=== PATIENT | female | born 1990 | race Caucasian/White ===

== ENCOUNTER 2016-04-10 07:07 | Emergency (ER) | payer OTHER ==
--- NOTE | 2016-04-10 07:19 | ED Physician Documentation ---
General Adult - HISTORIAN Historian: patient - HPI Chief Complaint: General Adult Further Comments: yes (25 year old female patient presents requesting refill on her klonopin. States insurance will not pay for her medication yet and she has been out since Sunday. Complains of shaking and insomnia.) - ROS CONST: no problems EYES/ENT: none CVS/RESP: none GI/: none MS/SKIN/LYMPH: none NEURO/PSYCH: denies: headache - PAST HX Past History: other (Depression, anxiety) Allergies/Adverse Reactions: Allergies Allergy/AdvReac Type Severity Reaction Status Date / Time erythromycin base Allergy Verified 12/21/15 15:30 Home Medications: Ambulatory Orders Medication Instructions Recorded Clonazepam [Klonopin] 0.5 mg PO 12/21/15 Escitalopram Oxalate [Lexapro] 10 mg PO QD 12/21/15 Penicillin V Potassium [Pen V K] 500 mg PO Q8H #30 tablet 12/21/15 - SOCIAL HX Smoking History: cigarettes - FAMILY HX Family History: No - VITAL SIGNS Vital Signs: Vital Signs Temp Pulse Resp BP Pulse Ox 118/59 12/21/15 15:56 - REVIEWED ASSESSMENTS Nursing Assessment Reviewed: Yes Vitals Reviewed: Yes Progress - Progress Progress: Explained patient would need to contact her PCP for klonopin refills. Patient is currently taking 1 mg TID. Explained she would have to wait on insurance to pay for refill. Explained insurances will pay per the medication directions. Patient reports she has been taking an extra klonopin at night to sleep so she is out. Again, explained patient would need to get refills and have klonopin managed by PCP. Explained this provider would not prescribe additional klonopin, explained patient was taking maximum dose for her diagnosis. General Adult Physical Exam - PHYSICAL EXAM GENERAL APPEARANCE: [id number] N EENT: eye inspection normal, BRAYDEN RESPIRATORY: no resp distress, chest non-tender, breath sounds normal CVS: reg rate & rhythm, heart sounds normal, equal pulses, no murmur, no gallop , PMI nml, no JVD, no friction rub, 24 SKIN: normal color, warm/dry, NR, INT, PAL, DR EXTREMITIES: non-tender, normal range of motion, no evidence of injury, no edema , J, [employer] NEURO: oriented X3, CN's nml as tested, motor nml, sensation nml, mood/affect nml Discharge Clincal Impression: Medication taken at higher dose than recommended Referrals: Primary Doctor,No [Primary Care Provider] - 2 Days Home Medications: Ambulatory Orders Clonazepam [Klonopin] 0.5 mg PO 12/21/15 Escitalopram Oxalate [Lexapro] 10 mg PO QD 12/21/15 Penicillin V Potassium [Pen V K] 500 mg PO Q8H #30 tablet 12/21/15 Condition: Stable Disposition: 01 HOME, SELF-CARE Decision to Admit: NO Decision Time: 07:19
[2016-04-10 07:23] VITALS: BP 115/81
== END 2016-04-10 07:25 | disposition home or self-care (01) ==
LOC: ED 07:07
DX: T42.4X1A Poisoning by benzodiazepines, accidental (unintentional), initial encounter (principal)
CPT/HCPCS: 99282; 99283

== ENCOUNTER 2016-09-04 19:08 | Emergency (ER) | payer MEDICAID, OTHER ==
[2016-09-04 19:24] VITALS: BP 109/62
--- NOTE | 2016-09-04 21:50 | ED Physician Documentation ---
Eye Problem - HISTORIAN Historian: patient - HPI Stated Complaint: POSS PINK EYE L Chief Complaint: Eye Problems Onset: hours Associated symptoms: pain, itching Location: left eye Severity: moderate Apparent Injury: no Further Comments: yes (26 year old female patient presents with complaints of left eye redness and drainage since this morning.) - ROS CONST: no problems MS/SKIN/LYMPH: denies: weakness, numbness, neck pain, back pain, ankle swelling , leg swelling, rash, other CVS/RESP: none EYES/ENT: none NEURO: denies: headache - PAST HX Past History: other (bipolar, depression) Allergies/Adverse Reactions: Allergies Allergy/AdvReac Type Severity Reaction Status Date / Time erythromycin base Allergy Verified 09/04/16 19:24 Home Medications: Ambulatory Orders Medication Instructions Recorded Clonazepam [Klonopin] 0.5 mg PO TID 12/21/15 Escitalopram Oxalate [Lexapro] 10 mg PO QD 12/21/15 Estradiol Cypionate 5 mg IM Q3M 09/04/16 [Depo-Estradiol] Theo/Polymyx B Sulf/Dexameth 2 drop OP QID #1 bottle 09/04/16 [Maxitrol Eye Drops] Paliperidone [Paliperidone ER] 6 mg PO D 09/04/16 Quetiapine Fumarate [Seroquel] 50 mg PO HS 09/04/16 - SOCIAL HX Smoking History: cigarettes - FAMILY HX Family History: denies: none - VITAL SIGNS Vital Signs: Vital Signs Temp Pulse Resp BP Pulse Ox 98.5 F 98 H 20 109/62 98 09/04/16 19:45 09/04/16 19:45 09/04/16 19:45 09/04/16 19:45 09/04/16 19:45 - REVIEWED ASSESSMENTS Nursing Assessment Reviewed: Yes Vitals Reviewed: Yes Eye Problem Physical Exam - Physical Exam General Appearance: mild distress Eyelids: erythema (L) Conjunctiva and Sclera: injected (L), exudate (L) Pupils: equal Skin: nml color, warm Respiratory: no resp distress CVS: reg rate & rhythm Neuro/Psych: oriented x3, neuro intact, mood/affect nml, CN's nml as tested Discharge Clincal Impression: Conjunctivitis Qualifiers: Conjunctivitis type: acute Acute conjunctivitis type: bacterial Laterality: left Qualified Code(s): H10.32 - Unspecified acute conjunctivitis, left eye Prescriptions: Theo/Polymyx B Sulf/Dexameth [Maxitrol Eye Drops] 2 drop OP QID #1 bottle Referrals: Mayelin Coyne MD [Primary Care Provider] - 2 Days Home Medications: Ambulatory Orders Clonazepam [Klonopin] 0.5 mg PO TID 12/21/15 Escitalopram Oxalate [Lexapro] 10 mg PO QD 12/21/15 Estradiol Cypionate [Depo-Estradiol] 5 mg IM Q3M 09/04/16 Theo/Polymyx B Sulf/Dexameth [Maxitrol Eye Drops] 2 drop OP QID #1 bottle Paliperidone [Paliperidone ER] 6 mg PO D 09/04/16 Quetiapine Fumarate [Seroquel] 50 mg PO HS 09/04/16 Condition: Good Disposition: 01 HOME, SELF-CARE Decision to Admit: NO Decision Time: 19:40
== END 2016-09-04 19:45 | disposition home or self-care (01) ==
LOC: ED 19:08
DX: H10.32 Unspecified acute conjunctivitis, left eye (principal)
CPT/HCPCS: 99283

== ENCOUNTER 2016-11-28 17:11 | Emergency (ER) | payer MEDICAID, OTHER ==
--- NOTE | 2016-11-28 17:29 | ED Physician Documentation ---
Female Urogenital Problems - HISTORIAN Historian: patient - HPI Stated Complaint: exposure to STI Chief Complaint: Female Urogenital Problems Onset: days ago (4) Time of Arrival to the ED: 17:00 Context: vaginal discharge and exposure Severity: moderate Location of Pain: pelvic pain - Associated Symptoms Urinary Symptoms: discomfort w/ urination, pain w/ urination. denies: blood in urine, frequent urination Discharge: vaginal discharge. denies: odorous discharge, yellowish discharge - ROS CONST: none GI/: nausea CVS/RESP: none EYES/ENT: none MS/SKIN/LYMPH: none - PAST HX Past History: other (anxiety ) Other History: none Surgeries/Procedures: cholecystectomy Immunizations: referred to PCP Allergies/Adverse Reactions: Allergies Allergy/AdvReac Type Severity Reaction Status Date / Time erythromycin base Allergy Verified 09/04/16 19:24 Home Medications: Ambulatory Orders Medication Instructions Recorded Clonazepam [Klonopin] 0.5 mg PO TID 12/21/15 Quetiapine Fumarate [Seroquel] 200 mg PO HS 09/04/16 - SOCIAL HX Smoking History: non-smoker Alcohol Use: none Drug Use: none - FAMILY HX Family History: none - VITAL SIGNS Vital Signs: Vital Signs Temp Pulse Resp BP Pulse Ox 109/62 09/04/16 19:45 - REVIEWED ASSESSMENTS Nursing Assessment Reviewed: Yes Vitals Reviewed: Yes Female Urogenital Problems - EXAM General Appearance: no acute distress EENT: eye inspection normal Neck: nml inspection Respiratory: no resp. distress, breath sounds nml CVS: reg rate & rhythm, heart sounds normal, equal pulses Abdomen: soft, non-tender, no organomegaly, no distention, nml bowel sounds Back: non-tender Skin: color nml, no rash, warm,dry Extremities: non-tender Neuro: oriented X3, CN's nml as tested, motor nml Discharge Clincal Impression: High risk sexual behavior Referrals: Mayelin Coyne MD [Primary Care Provider] - 2 Days Condition: Stable Disposition: 01 HOME, SELF-CARE Decision to Admit: NO Date of Decison to Admit: 11/28/16 Decision Time: 18:41
[2016-11-28 17:30] VITALS: BP 110/84
[2016-11-28] MEDS ORDERED: metroNIDAZOLE 500 MG TABLET PO ONE (17:34)
[2016-11-28] MEDS ORDERED: AZITHROMYCIN 250 MG TABLET PO ONE (17:35)
== END 2016-11-28 18:49 | disposition home or self-care (01) ==
LOC: ED 17:11
DX: Z20.2 Contact with and (suspected) exposure to infections with a predominantly sexual mode of transmission (principal)
CPT/HCPCS: 87801; J0696; 96372; 99283

== ENCOUNTER → 2018-01-27 19:14 | Emergency (ER) | payer MEDICAID, OTHER | LOC: ED 19:14 | DX: Z53.21 Procedure and treatment not carried out due to patient leaving prior to being seen by health care provider (principal) ==

== ENCOUNTER 2018-06-07 18:44 | Emergency (ER) | payer MEDICAID, OTHER ==
[2018-06-07 18:59] VITALS: BP 108/74
--- NOTE | 2018-06-07 19:01 | ED Physician Documentation ---
Eye Problem - HISTORIAN Historian: patient - HPI Stated Complaint: right eye irritation Chief Complaint: Eye Problems (Right Eye) Additional Information: Patient is a 27-year-old female that presents to the ER with c/o right eye re dness that started yesterday. She states that she woke up this morning and it was matted shut- she has been having greenish/yellow drainage. She states that she has no visual disturbances and has a history of "pink eye". Onset: days ago (yesterday) Associated symptoms: burining, redness, matting Location: right eye Severity: moderate Apparent Injury: no Context: pink eye Where: home Other Injuries: denies: neck, head - ROS CONST: no problems MS/SKIN/LYMPH: denies: weakness CVS/RESP: none EYES/ENT: none GI/: denies: nausea, vomiting NEURO: denies: headache - PAST HX Past History: other (depression, terrors, bipolar, Hep C, hx of drug abuse) Immunizations: tetanus, UTD Allergies/Adverse Reactions: Allergies Allergy/AdvReac Type Severity Reaction Status Date / Time erythromycin base Allergy Verified 06/07/18 18:58 Home Medications: Ambulatory Orders Medication Instructions Recorded Clonazepam [Klonopin] 0.5 mg PO TID 12/21/15 Quetiapine Fumarate [Seroquel] 200 mg PO HS 09/04/16 Doxycycline Hyclate 100 mg PO BID #20 tablet 11/28/16 Polymyxin B/Trimethoprim Opth 1 drop OP Q3H #1 bottle 06/07/18 [Polytrim Opth] - SOCIAL HX Smoking History: less than 1 pack/day Alcohol Use: none Drug Use: none - FAMILY HX Family History: none - VITAL SIGNS Vital Signs: Vital Signs Temp Pulse Resp BP Pulse Ox 98.2 F 81 19 108/74 100 06/07/18 18:54 06/07/18 18:54 06/07/18 18:54 06/07/18 18:54 06/07/18 18:54 - REVIEWED ASSESSMENTS Nursing Assessment Reviewed: Yes Vitals Reviewed: Yes Eye Problem Physical Exam - Physical Exam General Appearance: no acute distress, alert Examined with Slit Lamp: No Visual Acuity Right 20/: 30 Visual Acuity Left 20/: 20 Eyelids: nml inspection Conjunctiva and Sclera: injected (R), exudate (R) EOM: intact Pupils: equal Head/ENT: nml inspection, pharynx nml Skin: nml color, warm, skin intact Neck/Back: nml inspection, non-tender Respiratory: breath sounds normal CVS: heart sounds normal, equal pulses Neuro/Psych: oriented x3, neuro intact, mood/affect nml Discharge Clincal Impression: Conjunctivitis Prescriptions: Polymyxin B/Trimethoprim Opth [Polytrim Opth] 1 drop OP Q3H #1 bottle Referrals: Carlos Dawson MD [Primary Care Provider] - 2 Days Additional Instructions: upper doubler eye drops - instill 2 drops into the affected eye every 3 hours Good Handwashing Try not to rub the eye Follow up with PCP next week if no improvement Condition: Good Disposition: 01 HOME, SELF-CARE Decision to Admit: NO Decision Time: 19:06
== END 2018-06-07 19:07 | disposition home or self-care (01) ==
LOC: ED 18:44
DX: H10.9 Unspecified conjunctivitis (principal); Z72.0 Tobacco use
CPT/HCPCS: 99282; 99283